=== PATIENT | female | born 2000 | race Caucasian/White ===

== ENCOUNTER 2022-01-11 10:39 | Emergency (ER) | payer OTHER, SELFPAY ==
--- NOTE | ~2022-01-11 | XR_ITS ---
XR ankle RT min 3V 01/11/2022 10:59 INDICATION: Right ankle pain PROCEDURE: 4 views right ankle COMPARISON: No prior studies for comparison. FINDINGS: Fracture, dislocation or subluxation is not identified. The soft tissues appear within norm al limits. No foreign bodies are identified. IMPRESSION: 1: NO ACUTE BONE OR JOINT ABNORMALITY IDENTIFIED. Reviewed, dictated and finalized at location B.
[2022-01-11 10:48] VITALS: BP 137/56; PULSE 99; RESP 20; TEMP 37; O2SAT 99
--- NOTE | 2022-01-11 11:27 | ED.LOWEXIN ---
HPI - Extremity Injury (Lower) General Chief Complaint: Extremity Injury, Lower Stated Complaint: right ankle injury Time Seen by Provider: 01/11/22 10:46 History of Present Illness HPI Narrative: 21-year-old female presents the emergency room complaints of right ankle pain. Patient states that she was playing soccer earlier this morning, twisted her ankle and heard a pop. Patient states that she was ambulatory following the injury but with pain. Related Data Allergies Allergy/AdvReac Type Severity Reaction Status Date / Time No Known Allergies Allergy Mild Unverified 01/11/22 10:51 Review of Systems Review of Systems: CONSTITUTIONAL: Denies fever, chills, or sweats. EYES: Denies visual changes, redness, or discharge. ENT: Denies rhinorrhea, congestion, sore throat, or otalgia. CARDIOVASCULAR: Denies chest pain, palpitations, or edema. RESPIRATORY: Denies cough or dyspnea. GASTROINTESTINAL: Denies abdominal pain, nausea, vomiting, or diarrhea. GENITOURINARY: Denies dysuria or hematuria. SKIN: Denies rash or itching. MUSCULOSKELETAL: Reports right ankle pain NEUROLOGIC: Denies headache, numbness, dizziness, or weakness. PSYCHIATRIC: Denies anxiety or depression. Exam Narrative: GENERAL: Well-appearing, well-nourished, and in no acute distress. HEAD: Normocephalic, atraumatic. EYES: PERRLA and EOMI. CHEST: Clear to auscultation. No respiratory distress. No wheezes rales or rhonchi HEART: Regular rate and rhythm. No murmur heard. Normal peripheral pulses. ABDOMEN: Soft, nontender, nondistended, normal active bowel sounds. EXTREMITIES: Right ankle: Tenderness of the right lateral malleolus with no soft tissue swelling. No joint laxity. Neurovascular is intact distally. No bony abnormality SKIN: Warm, dry, no rash. NEURO: No focal deficits. Alert and oriented x3. PSYCH: Normal mood and affect. Course Vital Signs Vital signs: Vital Signs Temperature 37.0 C 01/11/22 10:48 Pulse Rate 99 01/11/22 10:48 Respiratory Rate 20 01/11/22 10:48 Blood Pressure 137/56 L 01/11/22 10:48 Pulse Oximetry 99 01/11/22 10:48 Oxygen Delivery Room Air 01/11/22 10:48 Temperature 37.0 C 01/11/22 10:48 Pulse Rate 99 01/11/22 10:48 Respiratory Rate 20 01/11/22 10:48 Blood Pressure 137/56 L 01/11/22 10:48 Pulse Oximetry 99 01/11/22 10:48 Oxygen Delivery Room Air 01/11/22 10:48 Discharge Plan Discharge Clinical Impression: Ankle sprain and strain Patient Disposition: Home, Self-Care Condition: Stable Instructions: Antibiotic Form Additional Instructions: Wear Ger bandage as needed for comfort. Tylenol and ibuprofen as needed. Recommend limiting her physical activities for the next 7 to 10 days. May return to full activity when you are pain-free. Follow-up/Referrals: Analisa Momin MD [Primary Care Provider] - Time of Disposition: 11:30
== END 2022-01-11 11:45 | disposition home or self-care (01) ==
PROVIDERS: Emergency Provider Nurse Practitioner Family; PCP Pediatrics
DX: S93.401A Sprain of unspecified ligament of right ankle, initial encounter (principal); S96.911A Strain of unspecified muscle and tendon at ankle and foot level, right foot, initial encounter; X50.9XXA Other and unspecified overexertion or strenuous movements or postures, initial encounter; Y93.66 Activity, soccer
CPT/HCPCS: 73610; 99283